=== PATIENT | female | born 1930 | race Caucasian/White ===

== ENCOUNTER 2018-12-05 17:43 | Inpatient (IN) | payer MEDICARE, MEDICAID ==
[~2018-12-05] VITALS: Ht 160 cm; Wt 54.4 kg
[2018-12-05 17:50] VITALS: BP 124/71
--- NOTE | 2018-12-05 17:50 | NUR ---
ED Nurse Note: pt was brought in to ER by ambulance from home due to chest pain. per pt, the pain is getting better and it is 3/10 now. skin clean and intact. pt had open heart surgery a month ago and surgical site clean and intact. pt aao x4, Moldovan speaking. son at bedside. per pt, she threw up blood tingled vomit before parametic arrived at her house but not since she arrived ER.
[2018-12-05 18:10] LABS: BASOPHILS % (AUTO) 1.6 % (0.0-2.0); EOSINOPHILS % (AUTO) 0.9 % (0.0-3.0); HEMATOCRIT 28.4 % (37.0-47.0); HEMOGLOBIN 9.7 G/DL (12.0-16.0); LYMPHOCYTES % (AUTO) 18.4 % (20.0-45.0); MEAN CORPUSCULAR VOLUME 88 FL (80-99); MONOCYTES % (AUTO) 8.7 % (1.0-10.0); NEUTROPHILS % (AUTO) 70.4 % (45.0-75.0); PLATELET COUNT 338 K/UL (150-450); RED BLOOD COUNT 3.24 M/UL (4.20-5.40); RED CELL DISTRIBUTION WIDTH 14.4 % (11.6-14.8); WHITE BLOOD COUNT 9.7 K/UL (4.8-10.8)
[2018-12-05 18:20] LABS: INR 1.1 (0.9-1.1)
[2018-12-05 18:24] LABS: ANION GAP 9 mmol/L (5-15); BLOOD UREA NITROGEN 20 mg/dL (7-18); CALCIUM 8.9 MG/DL (8.5-10.1); CARBON DIOXIDE 27 MMOL/L (21-32); CHLORIDE 95 MMOL/L (98-107); CREATININE 1.1 MG/DL (0.55-1.30); POTASSIUM 4.2 MMOL/L (3.5-5.1); SODIUM 131 MMOL/L (136-145)
[2018-12-05 18:39] LABS: ALANINE AMINOTRANSFERASE 26 U/L (12-78); ALBUMIN 2.9 G/DL (3.4-5.0); ALBUMIN/GLOBULIN RATIO 0.8 (1.0-2.7); ALKALINE PHOSPHATASE 119 U/L (46-116); ASPARTATE AMINO TRANSFERASE 25 U/L (15-37); BILIRUBIN,TOTAL 0.3 MG/DL (0.2-1.0); CKMB 1.3 NG/ML (0.0-3.6); CREATINE KINASE 36 U/L (26-308)
--- NOTE | 2018-12-05 18:42 | Emergency Room Report ---
History of Present Illness General Chief Complaint: Chest Pain Source: Patient, Family Member, EMS Present Illness HPI Patient present with complaints of chest pain midsternal Ongoing for the past one day Patient's son reports that the patient had recent open heart surgery triple vessel bypass at [facility] 3 weeks ago she had been doing well since then at rehabilitation Over the past 4 days she had a vomiting episode And has continued to deteriorate over the past few days decreased oral intake and increased weakness Denies any change with position or exertion Patient points to the midsternal region denies any other radiation at this time Denies any recent trauma or fall Allergies: Coded Allergies: No Known Allergies (Unverified , 12/05/18) Patient History Past Medical History: see triage record Pertinent Family History: none Reviewed Nursing Documentation: PMH: Agreed; PSxH: Agreed Nursing Documentation-PMH Hx Cardiac Problems: Yes - CHOLESTEROL Hx Hypertension: Yes Review of Systems All Other Systems: negative except mentioned in HPI Physical Exam Vital Signs Date Time Temp Pulse Resp B/P (MAP) Pulse Ox O2 Delivery O2 Flow Rate FiO2 12/05/18 17:39 98.8 96 19 101/63 95 Room Air Sp02 EP Interpretation: reviewed, normal General Appearance: well appearing, no apparent distress Head: normocephalic, atraumatic Eyes: bilateral eye PERRL, bilateral eye EOMI ENT: hearing grossly normal, normal pharynx, TMs + canals normal, uvula midline Neck: full range of motion, supple, no meningismus, no bony tend Respiratory: lungs clear, normal breath sounds, no rhonchi, no respiratory distress, no retraction, no accessory muscle use Cardiovascular #1: normal peripheral pulses, regular rate, rhythm, no edema, no gallop, no JVD, no murmur Gastrointestinal: normal bowel sounds, non tender, soft, no mass, no organomegaly, non-distended, no guarding, no hernia, no pulsatile mass, no rebound Genitourinary: no CVA tenderness Musculoskeletal: normal inspection Neurologic: oriented x3, responsive, geophysics professor III-XII nml as tested, motor strength/ tone normal, sensory intact Psychiatric: mood/affect normal Skin: normal color, no rash, warm/dry, palpation normal Lymphatic: normal inspection, no adenopathy Medical Decision Making Diagnostic Impression: Primary Impression: Acute coronary syndrome ER Course Patient is a fairly complex patient with multiple differential to consideration including but not limited to cardiac cardiopulmonary and vascular emergencies Patient's initial blood work are appropriate EKG does not show any obvious acute disease patient remains pain-free at this time given the recent procedures and multiple comorbidities she requires admission for further care Labs Test 12/05/18 18:00 12/06/18 07:15 White Blood Count 9.7 K/UL (4.8-10.8) 6.8 K/UL (4.8-10.8) Red Blood Count 3.24 M/UL (4.20-5.40) 3.23 M/UL (4.20-5.40) Hemoglobin 9.7 G/DL (12.0-16.0) 9.3 G/DL (12.0-16.0) Hematocrit 28.4 % (37.0-47.0) 28.8 % (37.0-47.0) Mean Corpuscular Volume 88 FL (80-99) 89 FL (80-99) Mean Corpuscular Hemoglobin 30.1 PG (27.0-31.0) 28.8 PG (27.0-31.0) Mean Corpuscular Hemoglobin Concent 34.2 G/DL (32.0-36.0) 32.3 G/DL (32.0-36.0) Red Cell Distribution Width 14.4 % (11.6-14.8) 15.4 % (11.6-14.8) Platelet Count 338 K/UL (150-450) 333 K/UL (150-450) Mean Platelet Volume 4.9 FL (6.5-10.1) 5.1 FL (6.5-10.1) Neutrophils (%) (Auto) 70.4 % (45.0-75.0) 65.6 % (45.0-75.0) Lymphocytes (%) (Auto) 18.4 % (20.0-45.0) 21.9 % (20.0-45.0) Monocytes (%) (Auto) 8.7 % (1.0-10.0) 8.8 % (1.0-10.0) Eosinophils (%) (Auto) 0.9 % (0.0-3.0) 2.1 % (0.0-3.0) Basophils (%) (Auto) 1.6 % (0.0-2.0) 1.7 % (0.0-2.0) Prothrombin Time 11.1 SEC (9.30-11.50) Prothromb Time International Ratio 1.1 (0.9-1.1) Activated Partial Thromboplast Time 26 SEC (23-33) Sodium Level 131 MMOL/L (136-145) 136 MMOL/L (136-145) Potassium Level 4.2 MMOL/L (3.5-5.1) 4.4 MMOL/L (3.5-5.1) Chloride Level 95 MMOL/L (98-107) 100 MMOL/L (98-107) Carbon Dioxide Level 27 MMOL/L (21-32) 29 MMOL/L (21-32) Anion Gap 9 mmol/L (5-15) 7 mmol/L (5-15) Blood Urea Nitrogen 20 mg/dL (7-18) 15 mg/dL (7-18) Creatinine 1.1 MG/DL (0.55-1.30) 1.0 MG/DL (0.55-1.30) Estimat Glomerular Filtration Rate mL/min (>60) mL/min (>60) Glucose Level 113 MG/DL (74-106) 91 MG/DL (74-106) Calcium Level 8.9 MG/DL (8.5-10.1) 8.6 MG/DL (8.5-10.1) Total Bilirubin 0.3 MG/DL (0.2-1.0) 0.3 MG/DL (0.2-1.0) Aspartate Amino Transf (AST/SGOT) 25 U/L (15-37) 17 U/L (15-37) Alanine Aminotransferase (ALT/SGPT) 26 U/L (12-78) 24 U/L (12-78) Alkaline Phosphatase 119 U/L (46-116) 106 U/L (46-116) Total Creatine Kinase 36 U/L (26-308) Creatine Kinase MB 1.3 NG/ML (0.0-3.6) Creatine Kinase MB Relative Index 3.6 Troponin I 0.025 ng/mL (0.000-0.056) 0.034 ng/mL (0.000-0.056) Pro-B-Type Natriuretic Peptide 3087 pg/mL (0-125) Total Protein 6.5 G/DL (6.4-8.2) 5.7 G/DL (6.4-8.2) Albumin 2.9 G/DL (3.4-5.0) 2.7 G/DL (3.4-5.0) Globulin 3.6 g/dL 3.0 g/dL Albumin/Globulin Ratio 0.8 (1.0-2.7) 0.9 (1.0-2.7) Lipase 249 U/L (73-393) EKG Diagnostic Results Rate: normal Rhythm: NSR ST Segments: other - Nonspecific ST T-wave changes Rhythm Strip Diag. Results EP Interpretation: yes Rate: 66 Rhythm: NSR, no PVC's, no ectopy Chest X-Ray Diagnostic Results Chest X-Ray Diagnostic Results : Chest X-Ray Ordered: Yes # of Views/Limited/Complete: 1 View Indication: Chest Pain EP Interpretation: Yes Interpretation: no consolidation, no effusion, no pneumothorax Impression: No acute disease Electronically Signed by: Saurabh Johnston DO Last Vital Signs Date Time Temp Pulse Resp B/P (MAP) Pulse Ox O2 Delivery O2 Flow Rate FiO2 12/05/18 17:50 78 19 Room Air 12/05/18 17:50 98.2 124/71 98 Status: improved Disposition: ADMITTED INPATIENT Condition: Serious Saurabh Johnston DO Dec 05, 2018 18:42
[2018-12-05] MEDS ORDERED: FERROUS SULFAT325 MG ORAL (18:51)
[2018-12-05] MEDS ORDERED: NAMENDA10 MG ORAL (18:51)
[2018-12-05] MEDS ORDERED: ABILIFY2 MG ORAL (18:51)
[2018-12-05] MEDS ORDERED: FUROSEMIDE40 MG ORAL (18:51)
[2018-12-05] MEDS ORDERED: B-122500 MCG SL (18:51)
[2018-12-05] MEDS ORDERED: LIPITOR40 MG ORAL (18:51)
[2018-12-05] MEDS ORDERED: VITAMIN D1000 UNI1 ORAL (18:51)
[2018-12-05] MEDS ORDERED: MAGNESIUM OXID400 M1 ORAL (18:51)
[2018-12-05] MEDS ORDERED: ASPIRIN EC325 MG ORAL (18:51)
[2018-12-05] MEDS ORDERED: ARICEPT10 MG ORAL (18:51)
[2018-12-05] MEDS ORDERED: PROTONIX40 MG ORAL (18:51)
[2018-12-05] MEDS ORDERED: POTASSIUM CHLO20 ME1 ORAL (18:51)
[2018-12-05] MEDS ORDERED: FOLIC ACID-VIT1 EAC1 PO (18:51)
[2018-12-05] MEDS ORDERED: VESICARE10 MG ORAL (18:51)
[2018-12-05] MEDS ORDERED: MULTIVITAMINS1 EAC8 ORAL (18:51)
[2018-12-05] MEDS ORDERED: COLACE100 MG ORAL (18:51)
[2018-12-05] MEDS ORDERED: METOPROLOL TART25 MG ORAL (18:51)
--- NOTE | 2018-12-05 19:08 | NUR ---
HAND-OFF: Report given to AMINTA Cruz. all the orders carried.
[2018-12-05 19:37] VITALS: BP 140/84
[2018-12-05 21:04] VITALS: BP 102/88
--- NOTE | 2018-12-05 21:06 | NUR ---
ED Nurse Note: PT hand off report reported to Mateo LEMOS from TELE. pt vital signs, report status and condition has been reported. pt is stable for transfer.
[2018-12-05 21:45] VITALS: BP 114/64
--- NOTE | 2018-12-05 22:30 | History and Physical Report ---
DATE OF ADMISSION: 12/05/2018 HISTORY OF PRESENT ILLNESS: The patient is an 88 years old female, came to the emergency room for having chest pain for one day prior to admission. The patient denies any fever or chills. PAST MEDICAL HISTORY: Coronary artery disease, bypass about two months ago, hypertension, and hyperlipidemia. MEDICATIONS: See the list. ALLERGIES: NKA. FAMILY HISTORY: Noncontributory. SOCIAL HISTORY: Lives at home with the son. Denies any smoking and drinking. Denies any illegal drugs. The patient has been walking but had pain since yesterday. OBJECTIVE: VITAL SIGNS: Blood pressure 150/70, pulse 74, respirations 18. No fever. HEENT: NAD. Mild JVD. CHEST: Bilateral few crackles. CARDIOVASCULAR: Regular rhythm. No gallop. No murmur. ABDOMEN: Soft. CHEST: Midline surgical scar which is healed. GENITOURINARY: Deferred. LABORATORY AND DIAGNOSTIC DATA: Troponins are negative. EKG, nonspecific ST and T-wave changes. ASSESSMENT: 1. Acute coronary syndrome. 2. Hypertension. 3. Hyperlipidemia. 4. Coronary artery disease status post bypass. PLAN: 1. We will admit on telemetry bed. 2. Start aspirin, beta-romie. 3. Continue current home medications. 4. Rule out . 5. She had a 2D echo. 6. Consider Cardiology consult. Jonah Eid M.D. DR: Sue JOB#: [id number] CC:
--- NOTE | 2018-12-05 22:50 | NUR ---
NURSE NOTES: Received report from ED. Pt stable and in no distress. Denies CP. Accompanied with son(Moreno). monitor car operator placed on pt, vitals stable and oriented pt to unit and room. Bed in lowest position, call light within reach. Contacted for admission orders. Will continue with plan of care.
[2018-12-06] VITALS: BP 96/50
[2018-12-06] MEDS ORDERED: Docusate 250mg cap ORAL PRN (00:45)
[2018-12-06] MEDS: Heparin 5000 units/ml inj SUBQ SCH ×3 (06:16→22:00)
--- NOTE | 2018-12-06 07:25 | NUR ---
HAND-OFF: Report given to AMINTA Parker. Endorsed plane of care.
[2018-12-06 07:51] LABS: BASOPHILS % (AUTO) 1.7 % (0.0-2.0); EOSINOPHILS % (AUTO) 2.1 % (0.0-3.0); HEMATOCRIT 28.8 % (37.0-47.0); HEMOGLOBIN 9.3 G/DL (12.0-16.0); LYMPHOCYTES % (AUTO) 21.9 % (20.0-45.0); MEAN CORPUSCULAR VOLUME 89 FL (80-99); MONOCYTES % (AUTO) 8.8 % (1.0-10.0); NEUTROPHILS % (AUTO) 65.6 % (45.0-75.0); PLATELET COUNT 333 K/UL (150-450); RED BLOOD COUNT 3.23 M/UL (4.20-5.40); RED CELL DISTRIBUTION WIDTH 15.4 % (11.6-14.8); WHITE BLOOD COUNT 6.8 K/UL (4.8-10.8)
[2018-12-06 08:00] VITALS: BP 92/85
--- NOTE | 2018-12-06 08:00 | NUR ---
NURSE NOTES: received pt in the bed, awake, alert, vital signs stable, no co pain, no SOB, respiration regular, skin warm and dry to touch, intact, urinate, abdomen soft, no edema, bed in low position, call light within reach.
[2018-12-06 08:36] LABS: ALANINE AMINOTRANSFERASE 24 U/L (12-78); ALBUMIN 2.7 G/DL (3.4-5.0); ALBUMIN/GLOBULIN RATIO 0.9 (1.0-2.7); ALKALINE PHOSPHATASE 106 U/L (46-116); ANION GAP 7 mmol/L (5-15); ASPARTATE AMINO TRANSFERASE 17 U/L (15-37); BILIRUBIN,TOTAL 0.3 MG/DL (0.2-1.0); BLOOD UREA NITROGEN 15 mg/dL (7-18); CALCIUM 8.6 MG/DL (8.5-10.1); CARBON DIOXIDE 29 MMOL/L (21-32); CHLORIDE 100 MMOL/L (98-107); POTASSIUM 4.4 MMOL/L (3.5-5.1); SODIUM 136 MMOL/L (136-145)
[2018-12-06] MEDS: Metoprolol 25mg tab ORAL SCH ×2 (09:00→17:31)
[2018-12-06] MEDS: Vitamin D 1000 IU Tab ORAL SCH (09:20)
[2018-12-06] MEDS: Memantine 10mg tab ORAL SCH ×2 (09:20→17:30)
[2018-12-06] MEDS: Donepezil 10mg tab ORAL SCH (09:21)
[2018-12-06] MEDS: Magnesium Oxide 400mg tab ORAL SCH (09:21)
[2018-12-06] MEDS: Multivitamin w/Minerals tab ORAL SCH (09:21)
[2018-12-06] MEDS: Aspirin Baby 81mg ORAL SCH (09:22)
[2018-12-06] MEDS: Furosemide 40mg tab ORAL SCH (09:22)
[2018-12-06] MEDS: Aspirin EC 325mg tab ORAL SCH (09:23)
--- NOTE | 2018-12-06 11:27 | NUR ---
CASE MANAGEMENT:REVIEW 88 YR OLD FEMALE BIBA FROM HOME CC: CHEST PAIN SI: ACS 98.7 96 19 101/63 95% ON RA NA-131 TROPONIN(-) BNP+3087 IS: 500CC NS BOLUS CXR : TO TELEMETRY IS: ASA PO QD
--- NOTE | 2018-12-06 11:35 | NUR ---
INTERQUAL CRITERIA MET FOR OBSERVATION
[2018-12-06 12:00] VITALS: BP 93/57
--- NOTE | 2018-12-06 14:33 | Cardiac Electrophysiology PN ---
Subjective Subjective [id number] Objective Last 24 Hour Vital Signs Date Time Temp Pulse Resp B/P (MAP) Pulse Ox O2 Delivery O2 Flow Rate FiO2 12/06/18 12:00 97 12/06/18 12:00 98.6 79 20 93/57 (69) 96 12/06/18 09:00 Room Air 12/06/18 09:00 86 92/50 12/06/18 08:00 105 12/06/18 08:00 97.2 94 20 92/85 (87) 94 12/06/18 04:00 77 12/06/18 00:00 89 12/06/18 00:00 96.0 89 20 96/50 (65) 95 12/05/18 22:01 Room Air 12/05/18 21:45 98.1 95 18 114/64 (81) 96 12/05/18 21:45 95 12/05/18 21:05 98.2 74 18 140/84 97 Room Air 12/05/18 21:04 98.2 74 18 102/88 97 Room Air 12/05/18 19:37 98.2 84 18 140/84 97 Room Air 12/05/18 17:50 78 19 Room Air 12/05/18 17:50 98.2 78 19 124/71 98 Room Air 12/05/18 17:39 98.8 96 19 101/63 95 Room Air Intake and Output 12/05/18 12/06/18 19:00 07:00 Intake Total 500 ml Balance 500 ml Intake Oral 0 ml IV Total 500 ml # Voids 1 Laboratory Tests Test 12/05/18 18:00 12/06/18 07:15 White Blood Count 9.7 K/UL (4.8-10.8) 6.8 K/UL (4.8-10.8) Red Blood Count 3.24 M/UL (4.20-5.40) L 3.23 M/UL (4.20-5.40) L Hemoglobin 9.7 G/DL (12.0-16.0) L 9.3 G/DL (12.0-16.0) L Hematocrit 28.4 % (37.0-47.0) L 28.8 % (37.0-47.0) L Mean Corpuscular Volume 88 FL (80-99) 89 FL (80-99) Mean Corpuscular Hemoglobin 30.1 PG (27.0-31.0) 28.8 PG (27.0-31.0) Mean Corpuscular Hemoglobin Concent 34.2 G/DL (32.0-36.0) 32.3 G/DL (32.0-36.0) Red Cell Distribution Width 14.4 % (11.6-14.8) 15.4 % (11.6-14.8) H Platelet Count 338 K/UL (150-450) 333 K/UL (150-450) Mean Platelet Volume 4.9 FL (6.5-10.1) L 5.1 FL (6.5-10.1) L Neutrophils (%) (Auto) 70.4 % (45.0-75.0) 65.6 % (45.0-75.0) Lymphocytes (%) (Auto) 18.4 % (20.0-45.0) L 21.9 % (20.0-45.0) Monocytes (%) (Auto) 8.7 % (1.0-10.0) 8.8 % (1.0-10.0) Eosinophils (%) (Auto) 0.9 % (0.0-3.0) 2.1 % (0.0-3.0) Basophils (%) (Auto) 1.6 % (0.0-2.0) 1.7 % (0.0-2.0) Prothrombin Time 11.1 SEC (9.30-11.50) Prothromb Time International Ratio 1.1 (0.9-1.1) Activated Partial Thromboplast Time 26 SEC (23-33) Sodium Level 131 MMOL/L (136-145) L 136 MMOL/L (136-145) Potassium Level 4.2 MMOL/L (3.5-5.1) 4.4 MMOL/L (3.5-5.1) Chloride Level 95 MMOL/L (98-107) L 100 MMOL/L (98-107) Carbon Dioxide Level 27 MMOL/L (21-32) 29 MMOL/L (21-32) Anion Gap 9 mmol/L (5-15) 7 mmol/L (5-15) Blood Urea Nitrogen 20 mg/dL (7-18) H 15 mg/dL (7-18) Creatinine 1.1 MG/DL (0.55-1.30) 1.0 MG/DL (0.55-1.30) Estimat Glomerular Filtration Rate mL/min (>60) mL/min (>60) Glucose Level 113 MG/DL (74-106) H 91 MG/DL (74-106) Calcium Level 8.9 MG/DL (8.5-10.1) 8.6 MG/DL (8.5-10.1) Total Bilirubin 0.3 MG/DL (0.2-1.0) 0.3 MG/DL (0.2-1.0) Aspartate Amino Transf (AST/SGOT) 25 U/L (15-37) 17 U/L (15-37) Alanine Aminotransferase (ALT/SGPT) 26 U/L (12-78) 24 U/L (12-78) Alkaline Phosphatase 119 U/L (46-116) H 106 U/L (46-116) Total Creatine Kinase 36 U/L (26-308) Creatine Kinase MB 1.3 NG/ML (0.0-3.6) Creatine Kinase MB Relative Index 3.6 Troponin I 0.025 ng/mL (0.000-0.056) 0.034 ng/mL (0.000-0.056) Pro-B-Type Natriuretic Peptide 3087 pg/mL (0-125) H Total Protein 6.5 G/DL (6.4-8.2) 5.7 G/DL (6.4-8.2) L Albumin 2.9 G/DL (3.4-5.0) L 2.7 G/DL (3.4-5.0) L Globulin 3.6 g/dL 3.0 g/dL Albumin/Globulin Ratio 0.8 (1.0-2.7) L 0.9 (1.0-2.7) L Lipase 249 U/L (73-393) Enrique Bedolla MD Dec 06, 2018 14:33
[2018-12-06 16:00] VITALS: BP 98/54
--- NOTE | 2018-12-06 19:38 | NUR ---
HAND-OFF: Report given to GHAZAL LEMOS, condition stable..
--- NOTE | 2018-12-06 19:39 | NUR ---
NURSE NOTES: Received pt from AMINTA Parker. Pt awake and resting. IV site intact and patent. Bed in lowest position, call light within reach. Will continue with plan of care.
[2018-12-06 20:00] VITALS: BP 101/55
[2018-12-06] MEDS ORDERED: Atorvastatin 80mg tab ORAL SCH (21:00)
[2018-12-06] MEDS ORDERED: ARIPiprazole 2mg tab ORAL SCH (21:00)
[2018-12-07] MEDS: Heparin 5000 units/ml inj SUBQ SCH (07:02)
--- NOTE | 2018-12-07 07:15 | NUR ---
NURSE NOTES: I received the patient awake and resting in bed. Patient alert and oriented x4. Patient does not display any signs of distress or SOB. Bed in the lowest position and call light within reach. I will continue to monitor the patient and implement care.
[2018-12-07 08:00] VITALS: BP 121/66
--- NOTE | 2018-12-07 08:23 | NUR ---
NURSE NOTES: Patient's son, RODERICK Mayer, called this morning and said he is going to take her home today. He said his mother is not sleeping well at the hospital. He said he would be her by 1300. Dr. Eid made aware. Patient resting in bed with caregiver at the bedside.
[2018-12-07] MEDS: Aspirin EC 325mg tab ORAL SCH (09:00)
[2018-12-07] MEDS: Aspirin Baby 81mg ORAL SCH (09:20)
[2018-12-07 09:21] VITALS: BP 121/66
[2018-12-07] MEDS: Magnesium Oxide 400mg tab ORAL SCH (09:21)
[2018-12-07] MEDS: Multivitamin w/Minerals tab ORAL SCH (09:21)
[2018-12-07] MEDS: Donepezil 10mg tab ORAL SCH (09:21)
[2018-12-07] MEDS: Metoprolol 25mg tab ORAL SCH (09:21)
[2018-12-07] MEDS: Furosemide 40mg tab ORAL SCH (09:21)
[2018-12-07] MEDS: Vitamin D 1000 IU Tab ORAL SCH (09:22)
[2018-12-07] MEDS: Memantine 10mg tab ORAL SCH (09:22)
--- NOTE | 2018-12-07 09:30 | NUR ---
PT EVALUATION NOTE Patient seen for initial evaluation, see complete evaluation for details. Patient presents with generalized weakness and impaired functional mobility. Patient will benefit from skilled inpatient PT intervention to address strength, balance, safety and functional mobility. Anticipate discharge home with home PT and family assistance once cleared by MD. No DME needs anticipated at this time. Addendum: 12/07/18 at 1325 by BRISEYDA SANTOS PT Amended: Links added.
--- NOTE | 2018-12-07 12:56 | NUR ---
NURSE NOTES: Patient discharged in stable. Patient's IV removed and the IV site did not display any signs of redness or swelling. Patient's son confirmed she was in possession of the belongings listed on the belongings sheet. Patient did not display any signs of distress or SOB. Patient transported [facility] via wheel chair and her son transported her home in a private vehicles.
--- NOTE | 2018-12-07 13:51 | Consultation ---
DATE OF CONSULTATION: 12/06/2018 CARDIOLOGY CONSULTATION: CONSULTING PHYSICIAN: Enrique Bedolla M.D. REFERRING PHYSICIAN: Ludwig Eid M.D. REASON FOR CONSULTATION: Chest pain in a patient with history of coronary artery bypass graft. HISTORY OF PRESENT ILLNESS: The patient is an 88-year-old Malawian speaking only lady with history of hypertension, hyperlipidemia, and coronary artery bypass graft procedures in October 2018, presents to the emergency room with nausea, vomiting as well as chest pain. The patient did not have any syncope, presyncope, or shortness of breath. The patient was admitted to telemetry and a Cardiology consultation was obtained for further evaluation. Her EKG showed sinus rhythm with inferolateral T-wave inversion, which may be chronic. REVIEW OF SYSTEMS: Review of systems was negative other than what was mentioned in the history of present illness. PAST MEDICAL HISTORY: Hypertension, hyperlipidemia, history of coronary artery bypass graft. MEDICATIONS: Per reconciliation. ALLERGIES: She has no known drug allergies. FAMILY HISTORY: Noncontributory. SOCIAL HISTORY: She lives at home with the family. Does not smoke or drink alcohol. PHYSICAL EXAMINATION: VITAL SIGNS: Blood pressure is 93/57, pulse 79, respirations 18, temperature 98.6. HEAD AND NECK: Showed no JVD or carotid bruits. LUNGS: Clear. CARDIOVASCULAR: Shows sternotomy, which is intact. Normal S1, S2 with no gallop or murmur. ABDOMEN: Soft. EXTREMITIES: No pitting edema. LABORATORY DATA: Her labs show white count 6.8, hemoglobin 9.7, hematocrit 28.8, platelet count 333. Sodium 132, potassium 4.4, BUN of 15, creatinine 1.0. Troponin negative x2. BNP 3087. ASSESSMENT AND PLAN: 1. Chest pain. The patient already ruled out for myocardial infarction. The patient has just been recently revascularized. There is no acute ischemic changes on electrocardiogram. The patient also underwent an echocardiogram that showed EF of 55 to 60%. Continue aspirin, Lipitor, and metoprolol 12.5 mg b.i.d. 2. Elevated BNP, likely congestive heart failure, diastolic dysfunction. The patient is already on Lasix 40 mg p.o. daily and metoprolol 12.5 mg b.i.d. 3. Hyperlipidemia, on Lipitor. 4. Bipolar disorder, on Abilify. Thank you very much, Dr. Eid, for allowing me to participate in the care of this patient. Please do not hesitate to contact me for any questions regarding my evaluation. Enrique Bedolla M.D. DR: HEAVENLY JOB#: [id number] CC:
--- NOTE | 2018-12-07 13:51 | Progress Note ---
DATE: 12/06/2018 SUBJECTIVE: This is an 88-year-old female, who currently came with acute coronary syndrome, chest pain, palpitation, mild short of breath. The patient also had a bypass past about 2 months ago. Was doing okay, but suddenly got chest pain. PHYSICAL EXAMINATION: GENERAL: This is an elderly lady who is currently doing better. VITAL SIGNS: Blood pressure is 96/50, pulse 89, respirations 20, temperature is 96. HEENT: AT/NC. EOMI. PERRLA. NECK: Supple. No JVD. CHEST: Bilateral crackles. CARDIOVASCULAR: Regular rhythm. No gallop. No murmur. ABDOMEN: Soft. EXTREMITIES: CCE. NEUROLOGICAL: No focal deficit. LABORATORY EXAMINATION: White counts are normal. Hemoglobin 9.3, slightly low. Chemistry panel, sodium 136, potassium 4.5, BUN 15, creatinine 1. Troponin 0.34. BNP was 3087. Troponin 0.025. ASSESSMENT: 1. Acute coronary syndrome. 2. History of coronary artery disease, status post bypass. 3. Hyperlipidemia. 4. Hypertension. 5. Depression. PLAN: 1. Continue current aspirin. 2. Continue Aricept, Lasix, Namenda, metoprolol. 3. Cardiology on case. 4. Waiting for 2D echo. Jonah Eid M.D. DR: IMELDA JOB#: [id number] CC:
--- NOTE | 2018-12-07 19:14 | Cardiology Report ---
APPROVED REPORT EKG Measurement Heart [id number] Normal sinus rhythm RSR' or QR pattern in V1 suggests right ventricular conduction delay Inferior infarct, age undetermined Anterior infarct, age undetermined Abnormal ECG
--- NOTE | 2018-12-07 19:14 | Cardiology Report ---
APPROVED REPORT EXAM: Two-dimensional and M-mode echocardiogram with Doppler and color Doppler. INDICATION Chest Pain M-Mode DIMENSIONS IVSd0.9 (0.7-1.1cm)Left Atrium (MM)3.0 (1.6-4.0cm) LVDd4.9 (3.5-5.6cm)Aortic Root2.4 (2.0-3.7cm) PWd0.8 (0.7-1.1cm)Aortic Cusp Exc.1.8 (1.5-2.0cm) IVSs1.4 cm LVDs3.0 (2.5-4.0cm) PWs1.0 cm Normal left ventricular chamber size, systolic function and wall motion. Left ventricular ejection fraction estimated to be 55-60%. Mild left ventricular hypertrophy by 2-D. No evidence of pericardial effusion. All other cardiac chamber sizes are within normal limits. Aortic valve calcification with normal cusp excursion . Thickened mitral valve leaflets with normal excursion. Mild mitral annulus and aortic root calcification. Pulmonic valve not well visualized. IVC in normal size with physiologic collapse . A color flow and spectral Doppler study was performed and revealed: No aortic insufficiency . Mitral diastolic velocities suggest reduced left ventricular relaxation c/w mild LV diastolic dysfunction (Grade I ) Mild mitral regurgitation. Trace tricuspid regurgitation. Tricuspid systolic velocities suggests peak right ventricular systolic pressure of 21 mmHg.
--- NOTE | 2018-12-07 23:00 | Discharge Summary ---
DATE OF ADMISSION: 12/05/2018 DATE OF DISCHARGE: 12/07/2018 HOSPITAL COURSE: This is an 88-year-old female, who came with acute coronary syndrome and hypertension. The patient has had Cardiology consult. The patient is clinically doing better. The patient is going to go home with her son. DISCHARGE MEDICATIONS: Continue home medications. DISCHARGE DIAGNOSES: 1. Atypical chest pain. 2. Hypertension. 3. Bypass. DIET: She is on regular diet. ACTIVITY: As tolerated. Jonah Eid M.D. DR: DARYL JOB#: [id number] CC:
== END 2018-12-07 12:49 | disposition home or self-care (01) | DRG 311 ==
LOC: EDBD 17:43 → EMR 18:00 → 2E 20:25 → EDBEDREQ 20:50
DX: I24.9 Acute ischemic heart disease, unspecified (principal); I25.10 Atherosclerotic heart disease of native coronary artery without angina pectoris; I10 Essential (primary) hypertension; Z95.1 Presence of aortocoronary bypass graft; E78.5 Hyperlipidemia, unspecified; F32.9 Major depressive disorder, single episode, unspecified
CPT/HCPCS: 36415; 71045; 80053; 82550; 82553; 83690; 83880; 84484; 85025; 85610; 85730; 93005; 93306; 99285; J8499